=== PATIENT | female | born 1945 | race African-American/Black ===

== ENCOUNTER 2022-07-18 18:55 | Inpatient (IN) | payer OTHER ==
--- OUTSIDE RECORDS SUMMARY | 2022-07-18 18:58 | XMS REPORT | Continuity of Care Document ---
:1945 Author Organization [facility] t Address [address] [place] [address] Care Team Providers Name Role Phone Roshan Conn DO Primary Care Physician Zak Martinez Attending Clinician Unavailable Laly Aburto MA Attending Clinician Unavailable Aide GALLO, Ana Lilia Gupta Attending Clinician Provider , Not In System Attending Clinician Unavailable Delfin MYLES, Kel North Attending Clinician Provider , Kaity Attending Clinician Juan Miguel Jain Attending Clinician Annabella Nunez Attending Clinician Unavailable Zak Martinez Admitting Clinician Unavailable Payers Payer Name Policy Type Policy Number Effective Date Expiration Date S ource Problems Condition Condition Condition Status Onset Resolution Last Treating Co mments Source Name Details Category Date Date Treatment Clinician Date Lung Lung Disease Active Overview: Method i nodules nodules 2-[address] 00:00: g of this Hospita 00 note l might be different from the original. Added automatic ally from request for surgery [id number] History of History of Disease Active Overview : Methodi lung lung 2-[address] cancer cancer 00:00: g of this Hospita 00 note l might be different from the original. Added automatic ally from request for surgery [id number] PORT PORT Diagnosis Active 2019-03-11 Mem oria REMOVAL REMOVAL 02-17 10:58:00 l Active 00:00: Matthew 02/17/[address] [place] [address] Hypomagnes Hypomagnes Disease Active 2017-11 M ethodi emia emia 11-09 00:00: Hospita 00 l Hypokalemi Hypokalemi Disease Active 2017-11 M ethodi a a 11-09 00:00: Hospita 00 l Anemia Anemia Disease Active 2017-11 Methodi associated associated 11-09 with with 00:00: Hospita chemothera chemothera 00 l py py History of History of Disease Active 2017-11 M ethodi breast breast 11-09 cancer in cancer in 00:00: Hosp erica female female 00 l Colon Colon Disease Active Methodi cancer cancer 07-15 st 00:00: Hospita 00 l 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 00:00: Ho spita 00 l Abnormal Abnormal Disease Active Metho di nuclear nuclear 04-28 stress stress 00:00: Hospita test test 00 l SOB SOB Disease Active Methodi (shortness (shortness 04-28 st of breath) of breath) 00:00: Ho spita 00 l Abnormal Abnormal Disease Active Metho di EKG EKG 04-21 00:00: Hospita 00 l Essential Essential Disease Active Met hodi hypertensi hypertensi 04-21 st on on 00:00: Hospita 00 l Amnesia Amnesia Problem Active 2021-06-22 Me moria (finding) (finding) 21:34:42 l Active [place] Problem 06/22/2021 [facility] Hyperlipid Hyperlipi Problem Active 2021-06-22 Memoria emia demia 21:34:42 l (disorder) (disorder) He rmann Active Problem 06/22/2021 [facility] Hypertensi Hypertens Problem Active 2021-06-22 Memoria ve will 21:34:42 l disorder, disorder, Herm gemma systemic systemic arterial arterial (disorder) (disorder) Active Problem 06/22/2021 [facility] Thiamin Thiamin Problem Active 2021-06-22 Me moria deficiency deficiency 21:34:42 l (disorder) (disorder) He rmann Active Problem 06/22/2021 [facility] Allergies, Adverse Reactions, Alerts Allergy Allergy Status Severity Reaction(s) Onset Inactive Treating Comm ents Source Name Type Date Date Clinician No Known DA Active [facility] Allergie 04-16 Clear s 00:00: [place] [facility] Iodine Propensi Active Itching Methodi And ty to 04-09 st Iodide adverse 00:00: Hospita Containi reaction 00 l ng s to Products drug Family History Family Member Diagnosis Comments Start Date Stop Date Source Natural father No Known Problems Met [facility] Natural mother No Known Problems Met [facility] Social History Social Habit Start Date Stop Date Quantity Comments Source History of Smokes tobacco Caodaism tobacco use daily Hospital Alcohol intake 2021-12-20 2021-12-20 Current Caodaism 00:00:00 00:00:00 non-drinker of Hospital alcohol (finding) Social History 2021-03-30 2021-03-30 [facility] hailee 18:54:25 18:54:25 Tobacco use and 2018-07-09 2018-07-09 Smokeless tobacco Me thodist exposure 00:00:00 00:00:00 non-user Hospital Tobacco Comment 2018-07-09 2018-07-09 smokes 1 cig per Met [facility] 00:00:00 00:00:00 day Hospital Sex Ass[birth year] At [birth year] Caodaism 00:00:00 00:00:00 Hospital Smoking Status Start Date Stop Date Source Smokes tobacco daily 2018-07-09 00:00:00 [facility] Medications Ordered Filled Start Stop Current Ordering Indication Dosage Frequency Signature Comments Components Source Medication Medication Date Date Medication? Clinician (SIG) Name Name calcium/D3/ Yes 1{tbl} QD Take 1 Me thodi mag 2-[address] ox/nuclear spectroscopist/clark 11:46: mouth Hospi ta /Zn 29 daily. l (CALTRATE + D3 PLUS MINERALS ORAL) iron,fm,ps/ Yes 1{tbl} QD Take 1 Me thodi folic/B,C18 2-[address] /LInessacasei 11:46: mouth Hospita (FUSION 29 daily. l PLUS ORAL) mag 0 Yes Q24H Take by Methodi hydrox/alum 2-[address] inum 11:46: daily as Hospita hyd/simeth 29 needed. l (ANTACID ORAL) cholecalcif Yes 1{tbl} Take 1 Me thodi zion, 2-[address] vitamin D3, 11:46: mouth Hospi ta (VITAMIN 29 daily. l D3) 5,000 Nature unit tablet Made acetaminoph Yes 500mg Q6H Take 500 M ethodi en 2-[address] (TYLENOL) 11:46: mouth Hospita 500 MG 29 every 6 l tablet (six) hours as needed for mild pain. METOPROLOL Yes 1{tbl} Q.5D Take 1 Met hodi SUCCINATE 2-[address] ORAL 11:46: mouth 2 Hospita 29 (two) l times a day. fluticasone Yes 2{spray QD 2 sprays Methodi propionate 2-17 } by Each st (FLONASE) 11:46: Nare route Ho spita 50 29 daily. l mcg/actuati on nasal spray potassium Yes 20meq Q.5D Take 20 Meth elizabeth chloride 2-[address] (KLOR-CON) 11:46: mouth 2 Hosp erica 20 mEq 29 (two) l packet times a day. Donepezil Yes 5 mg = 1 Keith sheila hydrochlori 7-02 tab, PO, l de 5 MG 14:23: Bedtime, # Herm gemma Oral Tablet 00 30 tab, 3 [Aricept] Refill(s), Pharmacy: [facility], 160.02, cm, 05/04/21 9:09:00 CDT, Height, 66.591, kg, 05/04/21 9:09:00 CDT, Weight thiamine Yes 100 mg = 1 Mem oria 100 mg oral 6-30 tab, PO, l tablet 15:01: Daily, X T[place] 00 90 day, # 90 tab, 1 Refill(s), Pharmacy: [facility], 160.02, cm, 03/30/21 13:40:00 CDT, Height, 68.182, kg, 03/30/21 13:40:00 CDT, Weight Hydrochloro Yes 1 tab, PO, Memoria thiazide 25 5-28 Daily, 0 l MG / 18:46: Refill(s) [place] Lisinopril 00 20 MG Oral Tablet anastrozole Yes 1 mg, PO, M emoria 5-28 Daily, 0 l 18:46: Refill(s) Vitamin D3 Yes PO, Daily, M emoria 5-28 0 l 18:46: Refill(s) Matthew 00 Pravastatin Yes 20 mg = 1 M emoria 5-28 tab, PO, l 18:45: Daily, # [place] 00 30 tab, 0 Refill(s) Lisinopril Yes PO, Daily, M emoria -28 0 l 18:45: Refill(s) [place] 00 lisinopril- Yes .5{tbl} Q.5D Take 0.5 Methodi hydrochloro 4-[address] thiazide 00:00: mouth 2 Hospit a (PRINZIDE,Z 00 (two) l ESTORETIC) times a 20-25 mg day. Takes per tablet one-half bid pravastatin Yes 20mg QD Take 20 mg Methodi (PRAVACHOL) 4-[address] 20 MG 00:00: daily. Hospita tablet 00 l ibandronate Yes 150mg Q30D Take 150 M ethodi (BONIVA) 4-[address] 150 mg 00:00: mouth Hospita tablet 00 every 30 l (thirty) days. anastrozole Yes 1mg QD Take 1 mg M ethodi (ARIMIDEX) 3-[address] 1 mg chemo 00:00: daily. Hospi ta tablet 00 l Immunizations Ordered Immunization Filled Immunization Date Status Commen ts Source Name Name [id number] 2021-01-11 Completed Keith rial [id number] 00:00:00 Herm gemma <sup>1</sup> Vital Signs Vital Name Observation Time Observation Value Comments Source Systolic blood 2021-12-20 17:43:00 126 mm[Hg] [facility] pressure Diastolic blood 2021-12-20 17:43:00 86 mm[Hg] [facility] pressure Heart rate 2021-12-20 17:43:00 87 /min [facility] Body temperature 2021-12-20 17:43:00 36.61 Jessica [facility] Respiratory rate 2021-12-20 17:43:00 18 /min [facility] Body height 2021-12-20 17:43:00 157.5 cm [facility] Body weight 2021-12-20 17:43:00 61.326 kg [facility] BMI 2021-12-20 17:43:00 24.73 kg/m2 [facility] Oxygen saturation in 2021-12-20 17:43:00 95 /min [facility] Arterial blood by Pulse oximetry Systolic (mm Hg) 2021-05-04 14:09:00 Keith rial Matthew Diastolic (mm Hg) 2021-05-04 14:09:00 Mem orial Matthew Heart Rate 2021-05-04 14:09:00 [facility] Respitory Rate 2021-05-04 14:09:00 Memori al Matthew Height 2021-05-04 14:09:00 160.02 cm [facility] Matthew Weight 2021-05-04 14:09:00 [facility] BMI Calculated 2021-05-04 14:09:00 Memori al Matthew Systolic (mm Hg) 2021-03-30 18:40:00 Keith rial [place] Diastolic (mm Hg) 2021-03-30 18:40:00 Mem orial Matthew Heart Rate 2021-03-30 18:40:00 [facility] Matthew Respitory Rate 2021-03-30 18:40:00 Memori al [place] Height 2021-03-30 18:40:00 160.02 cm [facility] Weight 2021-03-30 18:40:00 [facility] BMI Calculated 2021-03-30 18:40:00 Memori al [place] Procedures Procedure Date / Time Performing Clinician Source Performed PARTIAL THROMBOPLASTIN 2021-12-20 19:53:00 Kel Lenz Met [facility] TIME (PTT) COMPREHENSIVE METABOLIC 2021-12-20 19:53:[address] [facility] PANEL CBC WITH PLATELET AND 2021-12-20 19:53:00 Kel Lenz [facility] DIFFERENTIAL ESTIMATED GFR 2021-12-20 19:53:00 Kel Lenz [facility] MANUAL DIFFERENTIAL 2021-12-20 19:53:00 Kel Lenz [facility] TYPE AND SCREEN 2021-12-20 19:53:00 Kel Lenz [facility] PROTHROMBIN TIME WITH INR 2021-12-20 19:53:00 Kel Lenz [facility] PET CT SKULL BASE MID 2021-11-29 00:00:00 Provider, Not In [facility] THIGH EXTERNAL STUDY System CT CHEST EXTERNAL STUDY 2021-11-12 17:40:[address] [facility] CT CHEST W CONTRAST 2021-11-12 00:00:00 Provider, Historical Met [facility] Cataract surgery [facility] Plan of Care Planned Activity Planned Date Details Comments Source Future Scheduled 2022 HEPATITIS B VACCINES [facility] Test 11:33:59 (1 of 3 - 3-dose series) [code = HEPATITIS B VACCINES (1 of 3 - 3-dose series)] Future Scheduled 2022 65+ PNEUMOCOCCAL [facility] Test 11:33:59 VACCINE (1 - PCV) [code = 65+ PNEUMOCOCCAL VACCINE (1 - PCV)] Future Scheduled [address] [facility] Test 11:33:59 (procedure) [code = 420589829] Future Scheduled [address] [facility] Test 11:33:59 [code = COLONOSCOPY SCREENING] Future Scheduled 2022 SHINGLES VACCINES (1 Met [facility] Test 11:33:59 of 2) [code = SHINGLES VACCINES (1 of 2)] Future Scheduled 2022 COVID-19 VACCINE (3 - [facility] Test 11:33:59 Booster for Avery series) [code = COVID-19 VACCINE (3 - Booster for Avery series)] Future Scheduled 2022 INFLUENZA VACCINE [facility] Test 11:33:59 [code = INFLUENZA VACCINE] Encounters Start End Encounter Admission Attending Care Care Encounter Source Date/Time Date/Time Type Type Clinicians Facility Department ID 2022-04-17 Inpatient ANDRES Cordova [id number] [facility] 10:00:00 Zak [id number] [facility] 2022-04-17 2022-04-17 Outpatient ANDRES Cordova [facility] [id number] [facility] 05:10:00 05:10:00 Zak 78 [facility] 2022-04-15 2022-04-15 Telephone Criselda, 1.2.840.1 [id number] Methodi 00:00:00 00:00:[address] 3.430.2.7 Hospit a .3.179163 l .8 2022-03-19 2022-03-19 Telephone Criselda, 1.2.840.1 [id number] Methodi 00:00:00 00:00:[address] 3.430.2.7 Hospit a .3.005690 l .8 2022-03-19 2022-03-19 Telephone Criselda, 1.2.840.1 [id number] Methodi 00:00:00 00:00:[address] 3.430.2.7 Hospit a .3.702929 l .8 2022-03-18 2022-03-18 Orders Chancellor, 1.2.840.1 [id number] Methodi 00:00:00 00:00:00 Only Ana Lilia 56646.1.[address] Candy 3.430.2.7 Hospit a .3.743850 l .8 2022-03-14 2022-03-14 Telephone Criselda, 1.2.840.1 [id number] Methodi 00:00:00 00:00:[address] 3.430.2.7 Hospit a .3.159372 l .8 2022-03-11 2022-03-11 Telephone Criselda, 1.2.840.1 [id number] Methodi 00:00:00 00:00:[address] 3.430.2.7 Hospit a .3.291757 l .8 2022-03-08 2022-03-08 Travel 1.2.840.1 1.2.149.571 0370 [id number] Methodi 00:00:00 00:00:[address] 3.430.2.7 0.2.7.3.698 Ho spita .3.762273 084.8 l .8 2022-02-28 2022-02-28 Orders Provider, 1.2.840.1 [id number] Methodi 00:00:00 00:00:00 Only Not In 09655.1.[address] System 3.430.2.7 Hospit a .3.770094 l .8 2022-02-28 2022-02-28 Telephone Criselda, 1.2.840.1 [id number] Methodi 00:00:00 00:00:[address] 3.430.2.7 Hospit a .3.106568 l .8 2022-02-25 2022-02-25 Orders Chancellor, 1.2.840.1 [id number] Methodi 00:00:00 00:00:00 Only Ana Lilia 97334.1.[address] Candy 3.430.2.7 Hospit a .3.940251 l .8 2022-02-13 2022-02-13 Telephone Criselda, 1.2.840.1 [id number] Methodi 00:00:00 00:00:[address] 3.430.2.7 Hospit a .3.762684 l .8 2022-02-08 2022-02-08 Telephone Criselda, 1.2.840.1 [id number] [id number] Methodi 00:00:00 00:00:[address] 3.430.2.7 Hospit a .3.878867 l .8 2022-01-15 2022-01-15 Telephone Criselda, 1.2.840.1 [id number] Methodi 00:00:00 00:00:[address] 3.430.2.7 Hospit a .3.882992 l .8 2022-01-15 2022-01-15 Telephone Criselda, 1.2.840.1 [id number] 801 [id number] Methodi 00:00:00 00:00:[address] 3.430.2.7 Hospit a .3.016483 l .8 2022-01-15 2022-01-15 Travel 1.2.840.1 1.2.772.122 7928 [id number] Methodi 00:00:00 00:00:[address] 3.430.2.7 0.2.7.3.698 Ho spita .3.640533 084.8 l .8 2022-01-01 2022-01-01 Telephone Criselda, 1.2.840.1 [id number] Methodi 00:00:00 00:00:[address] 3.430.2.7 Hospit a .3.060201 l .8 2021-12-21 2021-12-21 Telephone Criselda, 1.2.840.1 [id number] [id number] Methodi 00:00:00 00:00:[address] 3.430.2.7 Hospit a .3.729570 l .8 2021-12-20 2021-12-20 [facility], 1.2.840.1 [id number] Methodi 12:01:44 23:59:00 Encounter Edlisa Ramires.H. 66285.1.[address] 3.430.2.7 Hospit a .3.471830 l .8 2021-12-20 2021-12-20 Office Lenz, 1.2.840.1 [id number] Methodi 11:15:00 13:44:33 Visit Edlisa Ramires.H. 08253.1.[address] 3.430.2.7 Hospit a .3.541473 l .8 2021-12-20 2021-12-20 Lab Lenz, 1.2.840.1 [id number] Methodi 13:25:00 13:30:00 Edlisa Ramires.H[address]2672.1.[address] 3.430.2.7 Hospit a .3.226556 l .8 2021-12-20 2021-12-20 Outpatient [facility] [id number] 00:00:00 00:00:00 EDWARD [address] 2021-12-20 2021-12-20 Outpatient [facility], [facility] [id number] 00:00:00 00:00:00 EDWARD [address] 2021-12-20 2021-12-20 Outpatient [facility] [id number] [place] 00:00:00 00:00:00 EDWARD [address] 2021-12-20 2021-12-20 Travel 1.2.840.1 1.2.120.292 1061 [id number] Methodi 00:00:00 00:00:[address] 3.430.2.7 0.2.7.3.698 Ho spita .3.017680 084.8 l .8 2021-12-19 2021-12-19 Abstract Criselda, 1.2.840.1 [id number] [id number] Methodi 00:00:00 00:00:[address] 3.430.2.7 Hospit a .3.979699 l .8 2021-12-18 2021-12-18 Telephone Criselda, 1.2.840.1 [id number] [id number] Methodi 00:00:00 00:00:[address] 3.430.2.7 Hospit a .3.572613 l .8 2021-12-11 2021-12-11 Telephone Criselda, 1.2.840.1 [id number] Methodi 00:00:00 00:00:[address] 3.430.2.7 Hospit a .3.799666 l .8 2021-12-11 2021-12-11 Telephone Criselda, 1.2.840.1 [id number] [id number] Methodi 00:00:00 00:00:[address] 3.430.2.7 Hospit a .3.971186 l .8 2021-12-10 2021-12-10 Telephone Criselda, 1.2.840.1 [id number] Methodi 00:00:00 00:00:[address] 3.430.2.7 Hospit a .3.026611 l .8 2021-12-10 2021-12-10 Abstract Criselda, 1.2.840.1 [id number] [id number] Methodi 00:00:00 00:00:[address] 3.430.2.7 Hospit a .3.665169 l .8 2021-11-26 2021-11-26 Orders Provider, 1.2.840.1 [id number] Methodi 00:00:00 00:00:00 Only Historical 24024.1.1 092 s t 3.430.2.7 Hospit a .3.544552 l .8 2021-11-26 2021-11-26 Abstract Criselda, 1.2.840.1 [id number] 2099 [id number] Methodi 00:00:00 00:00:[address] 3.430.2.7 [facility] a .3.147628 l .8 2021-06-20 2021-06-20 Ambulatory nullFlavo MNA [id number] [id number] Memoria 14:45:00 14:45:00 Pre-Reg r Neurology 02 l Lorna Tuthill 2021-06-20 2021-06-20 Outpatient MHIE MHIE [id number] Memoria 09:45:00 09:45:00 02 renetta Tuthill 2021-06-20 2021-06-20 Outpatient GEOVANY JainSCHER MISCHER [id number] 09:45:00 09:45:00 Juan Miguel 02 Tristian 2021-05-04 2021-05-05 Outpatient nullFlavo MNA [id number] Memoria 14:00:00 04:59:59 r Neurology 01 renetta Rothman Tuthill 2021-05-04 2021-05-04 Outpatient GEOVANY JainSCHER MISCHER 949 [id number] 09:00:00 23:59:59 Juan Miguel 01 [facility] 2021-05-04 2021-05-04 Outpatient MHIE MHIE [id number] Memoria 09:00:00 09:00:00 01 renetta Tuthill 2021-03-30 2021-03-31 Outpatient nullFlavo MNA [id number] Memoria 19:15:00 04:59:59 r Neurology 00 renetta Blair Tuthill 2021-03-30 2021-03-30 Outpatient GEOVANY JainSCHER MISCHER 882 [id number] 14:15:00 23:59:59 Juan Miguel 00 [facility] 2021-03-30 2021-03-30 Outpatient MHIE MHIE [id number] Memoria 14:15:00 14:15:00 00 [facility] 2019-03-11 2019-03-12 Outpatient nullFlavo [facility] [id number] Memoria 15:50:00 04:59:00 r Matthew 00 [facility] 2019-03-11 2019-03-11 Outpatient LYNDSAY Nunez [facility] [id number] 10:50:00 23:59:00 Annabella 00 Uyen 2019-03-11 2019-03-11 Outpatient MHBL MED 7500 MHBL 10:50:00 10:50:00 Results Test Description Test Time Test Comments Results Result Comments Source BASIC METABOLIC PANEL 2022-04-16 12:47:00 Test Item Value Reference Range Interpretation Comme nts SODIUM (test code = NA) 142 mEq/L 134-147 N POTASSIUM (test code = K) 3.4 mEq/L 3.4-5.0 N CHLORIDE (test code = CL) 106 mEq/L 100-108 N CARBON DIOXIDE (test code = CO2) 32 mEq/l 21-33 N ANION GAP (test code = GAP) 8 0-20 N GLUCOSE (test code = GLU) 86 mg/dL 70-110 N BLOOD UREA NITROGEN (test code = 14 mg/dL 7-18 N BUN) GLOMERULAR FILTRATION RATE (test 84.6 70-80 H Units of measure = ml/min/1.73 code = GFR) m2 CREATININE (test code = CREAT) 0.8 mg/dL 0.6-1.3 N CALCIUM (test code = CA) 9.9 mg/dL 8.0-10.5 N PROTHROMBIN [id number] 12:37:00 Test Item Value Reference Range Interpretation Comments PROTHROMBIN TIME 12.4 SECONDS 9.3-12.9 N PATIENT (test code = PTP) INTERNATIONAL NORMAL 1.1 0.8-1.2 N TARGET INR BY RATIO (test code = INDICATIO N Indication INR) INR1. Prophylax is of venous thrombos is 2.0 - 3.0 (orthoped ic surgery), Proph ylaxis of venous throm bosis (other than hig h-risk surgery), Treat ment of Deep Vein Thrombosis/Pulm onary Embolism, Preve ntion of systemic emb olism - Tissue heart va lves, Acute Myocardia l Infarction (to prevent systemic emboli sm), Valvular heart disease, Atrial Fibrillation, Bileaflet mecha nical valve in aortic position.2. Mec hanical prosthetic valv es (high risk), 2. 5 - 3.5 Presence of Lup us Anticoagulant o r Antiphospholipi d Antibodies, Pre vention of systemic emb olism - Acute Myocardia l Infarction (to prevent recurrent infar ct). CBC W/AUTO [id number] 12:27:00 Test Item Value Reference Range Interpretation Comments WHITE BLOOD CELL (test code = 3.2 x10 3/uL 4.5-11.0 L WBC) RED BLOOD CELL (test code = 4.31 x10 6/uL 3.54-5.02 N RBC) HEMOGLOBIN (test code = HGB) 13.2 g/dL 11.0-15.0 N HEMATOCRIT (test code = HCT) 40.4 % 33.0-45.0 N MEAN CELL VOLUME (test code = 93.7 fL 81.0-99.0 N MCV) MEAN CELL HGB (test code = MCH) 30.6 pg 27.0-33.0 N MEAN CELL HGB CONCETRATION 32.7 g/dL 33.0-37.0 L (test code = MCHC) RED CELL DISTRIBUTION WIDTH CV 15.4 % 11.5-14.5 H (test code = RDW) PLATELET COUNT (test code = 200 x10 3/uL 150-400 N PLT) NEUTROPHIL % (test code = NT%) 59.4 % 56.0-77.0 N LYMPHOCYTE % (test code = LY%) 29.8 % 14.0-32.0 N NEUTROPHIL # (test code = NT#) 1.91 x10 3/uL 2.0-7.6 L LYMPHOCYTE # (test code = LY#) 0.96 x10 3/uL 1.0-3.8 L MANUAL DIFF REQUIRED (test code NO = MDIFF) RED CELL DISTRIBUTION WIDTH SD 53.3 fL 37.0-54.0 N (test code = RDW-SD) MEAN PLATELET VOLUME (test code 10.0 fL 7.0-9.0 H = MPV) IMMATURE GRANULOCYTE % (test 0.3 % 0.0-2.0 N code = IG%) MONOCYTE % (test code = MO%) 9.3 % 4.8-9.0 H EOSINOPHIL % (test code = EO%) 0.6 % 0.3-3.7 N BASOPHIL % (test code = BA%) 0.6 % 0.0-2.0 N NUCLEATED RBC % (test code = 0.0 % 0-0 N NRBC%) IMMATURE GRANULOCYTE # (test 0.01 x10 3/uL 0.00-0.03 N code = IG#) MONOCYTE # (test code = MO#) 0.30 x10 3/uL 0.1-0.8 N EOSINOPHIL # (test code = EO#) 0.02 x10 3/uL 0.0-0.2 N BASOPHIL # (test code = BA#) 0.02 x10 3/uL 0.0-0.2 N NUCLEATED RBC # (test code = 0.00 x10 3/uL 0.0-0.1 N NRBC#) - XR CHEST 2 [id number] 00:00:00 [facility] 1945 Sex: F FAX: Zak Dinero MD [phone] [place]: St: PRE Name: DEJA MONTES DE OCA [facility] : 1945 Age/S: 76/F [address] [place] [address] Unit #: [id number] Loc: [place] [address] Phys: Zak Martinez MD Acct: [id number] Dis Date: Status: PRE [facility] PHONE #: [phone] Exam Date: 04/16/2022 1246 FAX #: [phone] Reason: PREOP EXAMS: CPT CODE: [id number] XR CHEST 2 V [id number] PROCEDURE INFORMATION: Exam: XR Chest Exam date and time: 04/16/2022 12:11 PM Age: 76 years old Clinical indication: Pre-operative exam; Respiratory screening exam; Additional info: Preop TECHNIQUE: Imaging protocol: XR of the chest. Views: 2 views. PA and Lateral COMPARISON: No relevant prior studies available. FINDINGS: Lungs: Right perihilar mass measures 5.5 cm. No consolidation or interstitial edema. Pleural spaces: No pleural effusion. No pneumothorax. Heart/Mediastinum: The heart size is normal. Vasculature: Tortuous aorta contains calcifications. Bones/joints: No acute abnormality. IMPRESSION: 5.5 cm right perihilar mass. Follow-up CT chest is recommended. at 1501 Reported and signed by: Jez Melara M.D. CC: Zak Martinez MD Technologist: RT Leni(Golden) Trnscrd Date/Time/By: 04/16/2022 (1500) : By: [email or web address] Orig Print D/T: S: 04/16/2022 (1337) PAGE 1 Signed ReportType and [id number] 21:13:00 Test Item Value Reference Range Interpretation Comments ABO grouping (test code = 883-9) O Rh type (test code = 46023-2) POS Antibody screen (gel) (test code = NEG 890-4) [facility]
--- NOTE | 2022-07-18 20:14 | RAD REPORT ---
EXAM DESCRIPTION: RAD - Knee Right 3 View - 07/18/2022 8:08 pm CLINICAL HISTORY: fall Fall, trauma, pain COMPARISON: No comparisons FINDINGS: Diffuse osteopenia is seen. Tricompartmental osteoarthritis is noted. No significant joint effusion. If clinical concern for fracture persists, CT would be recommended.
[2022-07-18 20:31] LABS: Absolute Lymphocytes (CBC) 0.6 K/uL (0.7-4.9); Hematocrit 47.3 % (36.0-45.0); Lymphocytes % 7.9 % (15.3-44.8); MCV 91.6 fL (80-100); MPV 8.9 fL (7.6-11.3); RBC Red Blood Cell Count 5.16 M/uL (3.86-4.86)
[2022-07-18] MEDS ORDERED: NA CHLORIDE 0.9% 1,000 ML ONE ×2 (20:40→22:00)
[2022-07-18 20:48] LABS: Protime INR 1.17
[2022-07-18 21:03] LABS: Albumin 3.7 g/dL (3.4-5.0); Bilirubin Direct 0.3 mg/dL (0-0.2); Bilirubin Total 0.9 mg/dL (0.2-1.0); Magnesium 2.4 mg/dL (1.8-2.4); Potassium 3.8 mmol/L (3.5-5.1); Protein, Total 9.1 g/dL (6.4-8.2)
[2022-07-18 22:00] LABS: Urine Blood 2+ (Negative); Urine Glucose Negative (Negative); Urine Protein 2+ (Negative); Urine Specific Gravity >=1.030 (1.005-1.030); Urine pH 5.5 (5.0-7.0)
--- NOTE | 2022-07-18 22:15 | ER ---
Nurse's Notes [facility] Name: Alexia Montes De Oca Age: 77 yrs Sex: Female : 1945 Arrival Date: 07/18/2022 Time: 19:01 Bed 4 Private MD: Diagnosis: Rhabdomyolysis;Dehydration;Lactic Acidosis;Severe sepsis without septic shock;UTI/ Urinary tract infection, site not specified Presentation: 07/18 19:04 Chief complaint: EMS states: Patient found on floor at home by a family member. Patient ss does not remember falling and is unsure how long she has been on the ground. C/o back pain. Coronavirus screen: Client denies travel out of the [place] in the last 14 days. Ebola Screen: Patient denies exposure to infectious person. Patient denies travel to an Ebola-affected area in the 21 days before illness onset. Initial Sepsis Screen: Does the patient meet any 2 criteria? No. Patient's initial sepsis screen is negative. Does the patient have a suspected source of infection? No. Patient's initial sepsis screen is negative. Risk Assessment: Do you want to hurt yourself or someone else? Patient reports no desire to harm self or others. Onset of symptoms was July 18, 2022. 19:04 Method Of Arrival: EMS: [facility] ss 19:04 Acuity: NAE 2 ss Triage Assessment: 20:34 General: Appears in no apparent distress. uncomfortable, Behavior is calm, cooperative, vc1 appropriate for age. Pain: Complains of pain in Bottom. Historical: - Allergies: 22:39 No Known Allergies; vc1 - Immunization history:: Adult Immunizations up to date. - Family history:: not pertinent. - Social history:: Smoking status: Patient denies any tobacco usage or history of. - Hospitalizations: : No recent hospitalization is reported. Screenin:34 Abuse screen: Denies threats or abuse. Nutritional screening: No deficits noted. vc1 Tuberculosis screening: No symptoms or risk factors identified. Fall Risk Fall in past 12 months (25 points). No secondary diagnosis (0 pts). IV access (20 points). Ambulatory Aid- None/Bed Rest/Nurse Assist (0 pts). Gait- Weak (10 pts.). Mental Status- Oriented to own ability (0 pts). Assessment: 19:00 General: Appears in no apparent distress. uncomfortable, ill, slender, Behavior is vc1 calm, quiet. Pain: Complains of pain in buttocks Pain does not radiate. Neuro: Level of Consciousness is obeys commands, lethargic, Oriented to person, place, situation. Cardiovascular: Capillary refill < 3 seconds Patient's skin is warm and dry. Respiratory: Airway is patent Respiratory effort is even, unlabored, shallow, Respiratory pattern is tachypnea. GI: No signs and/or symptoms were reported involving the gastrointestinal system. : Urine is blood tinged. EENT: No deficits noted. Derm: No deficits noted. 20:00 Reassessment: No changes from previously documented assessment. Patient and/or family vc1 updated on plan of care and expected duration. Pain level reassessed. 21:00 Reassessment: No changes from previously documented assessment. Patient and/or family vc1 updated on plan of care and expected duration. Pain level reassessed. 22:39 Reassessment: No changes from previously documented assessment. Patient and/or family vc1 updated on plan of care and expected duration. Pain level reassessed. Patient states symptoms have improved. Neuro: Level of Consciousness is lethargic. 07/19 00:00 Reassessment: No changes from previously documented assessment. Patient and/or family vc1 updated on plan of care and expected duration. Pain level reassessed. Patient states feeling better. Patient states symptoms have improved. 01:00 Reassessment: No changes from previously documented assessment. Patient and/or family vc1 updated on plan of care and expected duration. Pain level reassessed. Patient states feeling better. Patient states symptoms have improved. Vital Signs: 07/18 19:00 BP 119 / 97; Pulse 123; Resp 25; Pulse Ox 91% on R/A; vc1 19:04 BP 119 / 97; Pulse 121; Resp 18; Temp 99.3; Pulse Ox 90% on R/A; ss 20:00 BP 108 / 84; Pulse 117; Resp 25; Pulse Ox 90% on R/A; vc1 20:30 BP 112 / 90; Pulse 119; Resp 26; Pulse Ox 97% on 4 lpm NC; vc1 22:30 BP 149 / 98; Pulse 102; Resp 25; Pulse Ox 95% on R/A; jb4 07/19 00:34 BP 145 / 95; Pulse 95; Resp 24; Pulse Ox 97% on 4 lpm NC; jb4 ED Course: 07/18 19:01 Patient arrived in ED. ss 19:04 Arm band placed on left wrist. ss 19:06 Triage completed. ss 19:08 Rafi Yoder MD is Attending Physician. rn 20:10 XRAY Knee RIGHT 3 view In Process Unspecified. EDMS 20:33 Alyssa Zelaya, KAYLI is Primary Nurse. vc1 20:35 Patient has correct armband on for positive identification. Bed in low position. Call vc1 light in reach. Side rails up X2. Client placed on continuous cardiac and pulse oximetry monitoring. NIBP monitoring applied. 22:10 CT Traumagram (Head C Spine CAP W Con) In Process Unspecified. EDMS 22:14 Halima Ross MD is Hospitalizing Provider. rn 22:18 Luisito Fernandez MD is Hospitalizing Provider. rn 07/19 01:07 No provider procedures requiring assistance completed. Patient admitted, IV remains in vc1 place. Administered Medications: 07/18 20:35 Drug: NS 0.9% 1000 ml Route: IV; Rate: 1000 ml; Site: left antecubital; vc1 22:34 Drug: NS 0.9% 1000 ml Route: IV; Rate: 1 bolus; Site: left antecubital; vc1 23:22 Drug: Rocephin (cefTRIAXone) 1 grams Route: IV; Rate: calculated rate; Site: left vc1 antecubital; Medication: 20:35 VIS not applicable for this client. vc1 Outcome: 22:14 Decision to Hospitalize by Provider. rn 07/19 01:07 Admitted to Med/surg accompanied by tech, via stretcher, room 203, Report called to vc1 KAYLI Mayer Condition: good Instructed on the need for admit. 01:09 Patient left the ED. vc1 Signatures: Dispatcher [employer] EDMS Rafi Yoder MD MD rn Smirch, Shelby, RN RN ss Bryson, James, RN RN jbAlyssa Man RN RN vc1 Corrections: (The following items were deleted from the chart) 07/18 22:39 22:39 Home Meds: None; vc1 vc1
--- NOTE | 2022-07-18 22:15 | EDPHYS ---
Physician Documentation [facility] Name: Alexia Montes De Oca Age: 77 yrs Sex: Female : 1945 Arrival Date: 07/18/2022 Time: 19:01 Bed 4 Private MD: ED Physician Rafi Yoder HPI: 07/18 19:30 This 77 yrs old Black Female presents to ER via EMS with complaints of possible fall, rn weakness. 19:30 Onset: The symptoms/episode began/occurred at an unknown time. rn 19:31 The patient presents with decreased mental status, decreased responsiveness. Possible rn causes: unknown. Associated signs and symptoms: Pertinent positives: confusion, Pertinent negatives: abdominal pain, chest pain, seizure. Current symptoms: In the emergency department the patient's symptoms are unchanged from the initial presentation. It is unknown whether or not the patient has had similar symptoms in the past. The patient has not recently seen a physician. EMS reports possible fall, found down on ground for unknown period of time. Reports mild pain to back. Does not recall fall or what happened. Family here and states last spoken to this AM. No chest pain/sob/abd pain/vomiting/diarrhea. Daughter states hx of colon and breast cancer that they believe is done with but might have "spots on lungs". . Historical: - Allergies: 22:39 No Known Allergies; vc1 - Immunization history:: Adult Immunizations up to date. - Family history:: not pertinent. - Social history:: Smoking status: Patient denies any tobacco usage or history of. - Hospitalizations: : No recent hospitalization is reported. ROS: 19:31 Constitutional: Negative for fever, chills, and weight loss, Eyes: Negative for injury, rn pain, redness, and discharge, ENT: Negative for injury, pain, and discharge, Neck: Negative for injury, pain, and swelling, Cardiovascular: Negative for chest pain, palpitations, and edema, Respiratory: Negative for shortness of breath, cough, wheezing, and pleuritic chest pain, Abdomen/GI: Negative for abdominal pain, nausea, vomiting, diarrhea, and constipation, Back: + low back pain : Negative for injury, bleeding, discharge, and swelling, MS/Extremity: Negative for injury and deformity, Skin: Negative for injury, rash, and discoloration, Neuro: Negative for numbness, tingling, and seizure. Exam: 19:31 Constitutional: Thin female, slow to respond Head/Face: Normocephalic, atraumatic. rn Eyes: Periorbital areas with no swelling, redness, or edema. ENT: very dry MM Neck: NO midline cervical tenderness Chest/axilla: Normal chest wall appearance and motion. Nontender with no deformity. No lesions are appreciated. Cardiovascular: Tachcyardic, regular Respiratory: + mild tachypnea, no retractions Abdomen/GI: soft, non-tender, no ecchymosis Back: No spinal tenderness. Able to situp with my assistance. MS/ Extremity: Pulses equal, no cyanosis. Neurovascular intact. Full, normal range of motion. Equal circumference. + mild pain with ROM of right knee, no deformity. Neuro: Awake and alert, GCS 15, oriented to person, place, not time. Cranial nerves II-XII grossly intact. Motor strength 4/5 in all extremities. Sensory grossly intact. 20:08 ECG was reviewed by the Attending Physician. rn Vital Signs: 19:00 BP 119 / 97; Pulse 123; Resp 25; Pulse Ox 91% on R/A; vc1 19:04 BP 119 / 97; Pulse 121; Resp 18; Temp 99.3; Pulse Ox 90% on R/A; ss 20:00 BP 108 / 84; Pulse 117; Resp 25; Pulse Ox 90% on R/A; vc1 20:30 BP 112 / 90; Pulse 119; Resp 26; Pulse Ox 97% on 4 lpm NC; vc1 22:30 BP 149 / 98; Pulse 102; Resp 25; Pulse Ox 95% on R/A; jb4 07/19 00:34 BP 145 / 95; Pulse 95; Resp 24; Pulse Ox 97% on 4 lpm NC; jb4 MDM: 07/18 19:08 Patient medically screened. rn 21:54 Differential Diagnosis: electrolyte abnormality, hypoglycemia, intracranial bleed, rn pneumonia, UTI, volume depletion. 22:13 ED course: NO evidence of infection at this time, elevated lactate likely 2/2 rn dehydration and rhabdo. . 22:33 ED course: Urine micro now show UTI, now meets severe sepsis criteria, gives us source rn (A); SIRS criteria (B) Tachycardia 121, Acute AMS, and RR > 20. Organ dysfunction (C) is elevated lactate. Fluids given for rhabdo, will repeat lactate, but farah snot require 30ml/kg at this time, is not in shock. Abx ordered. . 07/18 19:12 Order name: Basic Metabolic Panel; Complete Time: 21:35 07/18 19:12 Order name: CBC with Diff; Complete Time: 21:35 07/18 19:12 Order name: LFT's; Complete Time: 21:35 07/18 19:12 Order name: Urine Culture rn 07/18 19:12 Order name: Urine Microscopic Only; Complete Time: 22:31 07/18 19:12 Order name: CPK; Complete Time: 21:35 07/18 19:12 Order name: CT Traumagram (Head C Spine CAP W Con); Complete Time: 22:31 07/18 19:12 Order name: Magnesium; Complete Time: 21:35 07/18 19:12 Order name: Protime (+inr); Complete Time: 21:35 07/18 19:12 Order name: Ptt, Activated; Complete Time: 21:35 07/18 19:12 Order name: SARS RAPID; Complete Time: 22:43 07/18 19:12 Order name: Blood Culture Adult (2) 07/18 19:12 Order name: Lactate; Complete Time: 21:35 07/18 22:01 Order name: Urine Dipstick-Ancillary; Complete Time: 22:13 EDMS 07/18 19:12 Order name: Labs collected and sent; Complete Time: 20:36 07/18 19:12 Order name: IV Start; Complete Time: 20:36 07/18 19:12 Order name: Urine Dipstick-Ancillary (obtain specimen); Complete Time: 22:18 07/18 19:12 Order name: XRAY Knee RIGHT 3 view; Complete Time: 20:36 07/18 19:12 Order name: EKG; Complete Time: 19:13 07/18 19:12 Order name: Cardiac monitoring; Complete Time: 20:35 07/18 19:12 Order name: EKG - Nurse/Tech; Complete Time: 20:35 07/18 19:12 Order name: NPO; Complete Time: 20:35 07/18 19:12 Order name: O2 Per Protocol; Complete Time: 20:35 07/18 19:12 Order name: O2 Sat Monitoring; Complete Time: 20:35 rn EC:08 Rate is 118 beats/min. Rhythm is regular. QRS [place] is Normal. NE interval is normal. rn QRS interval is normal. QT interval is normal. No Q waves. T waves are Normal. No ST changes noted. Clinical impression: Sinus tachycardia. Interpreted by me. Reviewed by me. Administered Medications: 20:35 Drug: NS 0.9% 1000 ml Route: IV; Rate: 1000 ml; Site: left antecubital; vc1 22:34 Drug: NS 0.9% 1000 ml Route: IV; Rate: 1 bolus; Site: left antecubital; vc1 23:22 Drug: Rocephin (cefTRIAXone) 1 grams Route: IV; Rate: calculated rate; Site: left vc1 antecubital; Disposition Summary: 07/18/22 22:14 Hospitalization Ordered Hospitalization Status: Inpatient Admission rn Location: Telemetry/MedSurg (Inpatient) rn Condition: Stable rn Problem: new rn Symptoms: have improved rn Bed/Room Type: Standard rn Provider: Luisito Fernandez(07/18/22 22:18) rn Room Assignment: 203(07/19/22 00:06) cg Diagnosis - Rhabdomyolysis rn - Dehydration rn - Lactic Acidosis rn - Severe sepsis without septic shock rn - UTI/ Urinary tract infection, site not specified rn Forms: - Medication Reconciliation Form rn - SBAR form rn Signatures: Dispatcher [employer] EDMS Rafi Yoder MD MD rn Garcia, Cindy, RN RN cg Calcote, Vanessa RN RN vc1 Corrections: (The following items were deleted from the chart) 22:18 22:14 Halima Ross rn rn 22:35 22:33 ED course: Urine micro now show UTI, gives us source (A); SIRS criteria (B) rn Tachycardia 121, Acute AMS, and RR > 20. Organ dysfunction (C) is elevated lactate. Fluids given for rhabdo, will repeat lactate, but farah snot require 30ml/kg at this time, is not in shock. Abx ordered. . rn 22:39 22:39 Home Meds: None; vc1 vc1 07/19 00:06 07/18 22:14 rn cg
[2022-07-18 22:25] LABS: Urine Bacteria 20-50 /HPF (<20); Urine Mucus 4+ /HPF (None Seen); Urine RBC <5 /HPF (None Seen)
--- NOTE | 2022-07-18 22:27 | RAD REPORT ---
EXAM DESCRIPTION: CT - Head C Spine Cap Anupama Yusuf - 07/18/2022 10:08 pm CLINICAL HISTORY: Trauma, head and neck injury. Chest, abdomen and pelvis pain. unwitnessed fall, back pain, sob, pelvic pain COMPARISON: Ct Skull/Thigh dated 11/29/2021 TECHNIQUE: CT head without contrast. CT cervical spine without contrast with coronal and sagittal reformatted images. CT chest, abdomen and pelvis with IV contrast (approximately 100 mL nonionic IV contrast) with bethea l and sagittal reformatted images of the spine. All CT scans are performed using dose optimization technique as appropriate and may include automated exposure control or mA/KV adjustment according to patient size. FINDINGS: CT HEAD WITHOUT CONTRAST: No intracranial hemorrhage, hydrocephalus or extra-axial fluid collection. Mild generalized brain atr ophy is present with mild periventricular and deep white matter chronic microvascular ischemic change s. No areas of brain edema or midline shift. The paranasal sinuses and mastoids are clear. The calvarium is intact. CT CERVICAL SPINE WITHOUT CONTRAST: No fracture or subluxation. Mild midcervical degenerative spondylosis. The prevertebral soft tissues are normal in thickness. CT CHEST, ABDOMEN, PELVIS WITH CONTRAST: 14 mm spiculated nodule is present in the left upper lobe. 7 mm spiculated nodule is present posterio r left upper lobe. 12 mm spiculated nodule is present superior segment right lower lobe. 7 mm spicula shey nodule is present right middle lobe.Emphysematous changes are present.No pneumothorax or pericard ial/pleural fluid. Enlarged lymphadenopathy is seen the hilar regions as well as the AP window. No evidence of intra-abdominal visceral injury, free fluid or free air. Bilateral renal cysts are pre sent, benign appearance. No pelvic mass or hematoma. Moderate lumbar degenerative changes are present. Moderate lower lumbar degenerative changes. IMPRESSION: Negative for acute traumatic findings. Spiculated lesions in the lungs, largest left upper lobe again seen. Most likely this is related to n eoplastic process. Please reference 11/29/2021 PET-CT report.
[2022-07-18 22:38] LABS: SARS-CoV-2 Antigen Rapid Res Negative (Negative)
[2022-07-18] MEDS ORDERED: CEFTRIAXONE 1000 MG/VIAL ONE (23:19)
--- NOTE | 2022-07-19 00:37 | P.HP ---
Certification for Inpatient Patient admitted to: Inpatient With expected LOS: >2 Midnights Patient will require the following post-hospital care: None Practitioner: I am a practitioner with admitting privileges, knowledge of patient current condition, hospital course, and medical plan of care. Services: Services provided to patient in accordance with Admission requirements found in Title 42 Section 412.3 of the Code of Federal Regulations <Rajat Albrecht - Last Filed: 07/19/22 00:30> Patient History Date of Service: 07/19/22 Reason for admission: Sepsis, UTI, rhabdo History of Present Illness: 77-year-old female with history of lung cancer, hypertension, CAD presents the emergency department after being found on the floor of her apartment. She was last seen by her niece on Friday at 9 AM, they had not heard from her since a welfare check was performed and patient was found to be lying on the floor. Patient is typically alert, oriented x3-4 and lives independently it is unknown why she was on the floor or how she fell nor the duration of time lying on the floor. She is evaluated in the emergency department she met SIRS criteria for heart rate greater than 90 and respiratory rate greater than 20 source infection was present with urinary tract infection her lactic acid was 2.4 being criteria for severe sepsis. Additional labs were significant for a markedly elevated CPK 10,635 mild elevations of aminotransferase levels. Patient back to her baseline mental status per family who is at bedside she denies any specific complaints or pain she had a CT head C-spine/chest abdomen pelvis with IV contrast which was without acute findings but did demonstrate spiculated lesions in the lungs, largest left upper lobe again seen most likely related neoplastic process. Patient and family notified about results they are currently undergoing evaluation in preparation for biopsy on outpatient basis. Will admit patient for further evaluation and management of fall, severe sepsis secondary to UTI, rhabdomyolysis. - Past Medical/Surgical History -: CAD -: Hypertension -: Lung cancerprevious radiation/chemo -: Knee surgery -: Stents Psychosocial/ Personal History: Patient lives at home alone in an apartment - Family History Family History: Reviewed- Non-Contributory - Social History Smoking Status: Current every day smoker Counseled patient to stop smoking for: less than 10 minutes Alcohol use: No CD- Drugs: No Caffeine use: Yes Place of Residence: Home <Rajat Albrecht - Last Filed: 07/19/22 00:30> Date of Service: 07/19/22 <Luisito Fernandez - Last Filed: 07/19/22 13:20> Allergies No Known Allergies Allergy (Verified 05/12/14 08:13) Review of Systems 10-point ROS is otherwise unremarkable General: Weakness, Malaise <Rajat Albrecht - Last Filed: 07/19/22 00:30> Physical Examination - Physical Exam General: Alert, In no apparent distress, Oriented x3 HEENT: Atraumatic, PERRLA, Other (Mucous membranes dry), EOMI, Sclerae nonicteric Neck: Supple, 2+ carotid pulse no bruit, No LAD, Without JVD or thyroid abnormality Respiratory: Clear to auscultation bilaterally, Normal air movement Cardiovascular: Regular rate/rhythm, Normal S1 S2 Capillary refill: <2 Seconds Gastrointestinal: Normal bowel sounds, No tenderness Musculoskeletal: No tenderness Integumentary: No rashes Neurological: Normal speech, Normal strength at 5/5 x4 extr, Normal tone - Studies Laboratory Data (last 24 hrs) 07/18/22 20:21: PT 12.9 H, INR 1.17, APTT 28.6 07/18/22 20:03: WBC 7.60, Hgb 15.7 H, Hct 47.3 H, Plt Count 150 L 07/18/22 20:03: Sodium 136, Potassium 3.8, BUN 35 H, Creatinine 1.29, Glucose 99, Magnesium 2.4, Total Bilirubin 0.9, AST 274 H, ALT 88 H, Alkaline Phosphatase 54 <Rajat Albrecht - Last Filed: 07/19/22 00:30> - Studies Laboratory Data (last 24 hrs) 07/18/22 20:21: PT 12.9 H, INR 1.17, APTT 28.6 07/18/22 20:03: WBC 7.60, Hgb 15.7 H, Hct 47.3 H, Plt Count 150 L 07/18/22 20:03: Sodium 136, Potassium 3.8, BUN 35 H, Creatinine 1.29, Glucose 99, Magnesium 2.4, Total Bilirubin 0.9, AST 274 H, ALT 88 H, Alkaline Phosphatase 54 <Luisito Fernandez - Last Filed: 07/19/22 13:20> Assessment and Plan - Plan Assessment: Rhabdomyolysis Severe sepsis secondary to urinary tract infection Questionable fall vs syncope/unsteady gait History of CAD Hypertension Incidental CT chest findings Plan: Rhabdomyolysis: Continue aggressive IV fluids, patient received IV fluid bolus in the emergency department. Monitor renal function and CPK daily, nephrology to be consulted. Severe sepsis secondary to urinary tract infection: Patient did not meet criteria for sepsis fluid bolus given lack of hypotension, lactate less than 4. Continue antibioticsRocephin blood and urine cultures were obtained. Patient with some questionable altered mental status prior to arrival to the hospital she is currently back to her baseline. Questionable fall vs syncope/unsteady gait: Patient was last seen by her niece on Friday morning at 9 AM, her niece reports that at that time she had unsteady gait and was not quite acting herself. She was then found in her apartment on the ground this afternoon it is unknown if she fell, passed out or what happened between Friday and now. We will have patient evaluated by physical therapy obtain MRI to rule out neurological causes as well as echocardiogram. Monitor on telemetry. Patient states she is feeling well at this time. No focal neurological deficits on exam. History of CAD: Continue home medications Hypertension: Continue home medications Incidental CT chest findings: 14 mm spiculated nodule is present in the left upper lobe. 7 mm spiculated nodule is present posterior left upper lobe. 12 mm spiculated nodule is present superior segment right lower lobe. 7 mm spiculated nodule is present right Discussed findings with patient and niece at bedside, they are aware of abnormalities on chest x-ray/CT and are following up outpatient, patient is currently pending a outpatient stress test before having a biopsy for diagnosis of possible neoplasm/lung cancer. She previously had lung cancer and received radiation/chemo about 3 years ago. Discussed importance of outpatient follow- up. DVT PPX: Lovenox Code status: Full Discharge Plan: Home Plan to discharge in: 72 Hours - Advance Directives Does patient have a Living Will: No Does patient have a Durable POA for Healthcare: No - Code Status/Comfort Care Code Status Assessed: Yes (Full code) Critical Care: No Time Spent Managing Pts Care (In Minutes): 70 <Rajat Albrecht - Last Filed: 07/19/22 00:30> Physician Review: Patient Assessed, Agree with Above Assessment and Plan <Rebecca,Luisito - Last Filed: 07/19/22 13:20>
[2022-07-19] MEDS ORDERED: ONDANSETRON 4 MG/2 ML VIAL IV PRN (01:12)
[2022-07-19] MEDS: Ringers Lactate 1,000 ML IV SCH ×3 (02:43→20:47)
[2022-07-19 04:28] LABS: Absolute Lymphocytes (CBC) 0.5 K/uL (0.7-4.9); Lymphocytes % 8.7 % (15.3-44.8); MCV 92.9 fL (80-100); MPV 8.9 fL (7.6-11.3); RBC Red Blood Cell Count 4.73 M/uL (3.86-4.86)
[2022-07-19 04:34] LABS: Albumin 2.9 g/dL (3.4-5.0); Bilirubin Total 0.5 mg/dL (0.2-1.0); Protein, Total 7.6 g/dL (6.4-8.2); Thyroid Stimulating Hormone 0.283 uIU/mL (0.360-3.740)
[2022-07-19 04:41] VITALS: BMI 19.5
[2022-07-19 04:47] LABS: Magnesium 2.3 mg/dL (1.8-2.4); Potassium 4.1 mmol/L (3.5-5.1)
[2022-07-19] MEDS ORDERED: PNEUMOCOCCAL VACCINE 0.5 ML IMVAC ONE (08:00)
[2022-07-19] MEDS: FOLIC ACID 1 MG TABLET PO SCH ×2 (09:00→15:41)
[2022-07-19] MEDS: ASPIRIN EC 81 MG TAB PO SCH ×2 (09:00→15:41)
[2022-07-19] MEDS: ENOXAPARIN 40 MG/0.4 ML SQ SCH (10:50)
--- NOTE | 2022-07-19 12:30 | EKG ---
Test Date: 2022-07-18 Test Time: 20:07:16 Cnc Mechanic: FRENCH MEASUREMENT RESULTS: Intervals: Rate: 118 CT: 164 QRSD: 90 QT: 306 QTc: 428 [place]: P: 74 CT: 164 QRS: 5 T: 79 INTERPRETIVE STATEMENTS: Sinus tachycardia Possible Left atrial enlargement Possible Inferior infarct, age undetermined Abnormal ECG Compared to ECG 05/12/2014 08:20:34 Myocardial infarct finding now present Sinus rhythm no longer present Electronically Signed On 07-19-22 12:28:58 CDT by Prateek Michelle
--- NOTE | 2022-07-19 12:38 | RAD REPORT ---
EXAM DESCRIPTION: MRI - Brain Wo Cont - 07/19/2022 11:57 am CLINICAL HISTORY: unsteady gait, AMS, transient alteration of awareness COMPARISON: Brain Wo Cont dated 04/18/2021; Head C Spine Cap W Con dated 07/18/2022 TECHNIQUE: Sagittal T1-weighted images were obtained along with axial PD, heavily T2-weighted and T2 -FLAIR images. Axial DWI and ADC mapping sequences were also obtained along with coronal heavily T2-w eighted images. Axial T2 HASTE sequence also obtained. FINDINGS: No intracranial hemorrhage, mass or acute infarction. There is no edema or shift of midlin e structures. No extra-axial fluid collections. Morales-matter/white matter junction is preserved. Signa l voids are seen as a normal finding in the major intracranial vessels. Cerebral atrophy pattern matc hes the 2020 study. Ventricles are in proportion to the volume loss. Moderate severity chronic ischem ic pattern in the cerebral white matter, primarily bifrontal, similar to prior imaging. There is left basal ganglia and insular cortex chronic ischemic change. No globe or orbital content abnormality. No sella or supra sella abnormality seen. No tonsillar ectop ia. Mastoid air cells and paranasal sinuses are clear. IMPRESSION: No acute or subacute infarction changes. No acute intracranial finding. Atrophy and chronic ischemic changes match the April 2021 study.
[2022-07-19] MEDS: HYDROCODONE/APAP 5/325 MG TAB PO PRN (15:41)
[2022-07-19] MEDS ORDERED: NA CHLORIDE 0.9% 1,000 ML IV ONE (16:25)
[2022-07-19] MEDS ORDERED: NA CHLORIDE 0.9% 500 ML IV ONE (16:30)
[2022-07-19] MEDS: CEFTRIAXONE 1,000 MG in NA CHLORIDE 0.9% 50 ML IVPB SCH (20:47)
[2022-07-19] MEDS ORDERED: CEFTRIAXONE 1000 MG/VIAL ONE (20:52)
[2022-07-20] MEDS: Ringers Lactate 1,000 ML IV SCH ×3 (05:20→17:12)
[2022-07-20 05:40] LABS: Absolute Lymphocytes (CBC) 0.5 K/uL (0.7-4.9); Hematocrit 37.5 % (36.0-45.0); Lymphocytes % 12.6 % (15.3-44.8); MCV 92.5 fL (80-100); MPV 8.8 fL (7.6-11.3); RBC Red Blood Cell Count 4.05 M/uL (3.86-4.86)
[2022-07-20 06:01] LABS: Albumin 2.3 g/dL (3.4-5.0); Bilirubin Total 0.3 mg/dL (0.2-1.0); Magnesium 2.1 mg/dL (1.8-2.4); Potassium 3.8 mmol/L (3.5-5.1); Protein, Total 6.1 g/dL (6.4-8.2)
[2022-07-20] MEDS: ASPIRIN EC 81 MG TAB PO SCH (08:38)
[2022-07-20] MEDS: FOLIC ACID 1 MG TABLET PO SCH (08:38)
[2022-07-20] MEDS: ENOXAPARIN 40 MG/0.4 ML SQ SCH (08:38)
[2022-07-20] MEDS ORDERED: POTASSIUM CL SA 10 MEQ TAB PO ONE (09:00)
--- NOTE | 2022-07-20 18:06 | P.PN ---
Subjective Date of Service: 07/20/22 Chief Complaint: Sepsis, UTI, rhabdo Subjective: Improving No acute events overnight. She is alert and oriented x 2 today [address] and [address]. Per her sister, Ms. Benjamin, this is near baseline. She worked well with PT, but is becoming tachycardic and tachypneic with exertion. Review of Systems 10-point ROS is otherwise unremarkable General: Weakness (generalized) Respiratory: SOB with Excertion Physical Examination - Vital Signs Temperature: 97.4 F Blood Pressure: 129/86 Pulse: 78 Respirations: 16 Pulse Ox (%): 97 - Physical Exam General: Alert, In no apparent distress, Oriented x2 HEENT: Atraumatic, PERRLA, Mucous membr. moist/pink, EOMI, Sclerae nonicteric Neck: Supple, JVD not distended Respiratory: Clear to auscultation bilaterally, Normal air movement Cardiovascular: No edema, Regular rate/rhythm, Normal S1 S2, No gallops, No rubs, No murmurs Gastrointestinal: Normal bowel sounds, Soft and benign, Non-distended, No tenderness, No rebound, No guarding Musculoskeletal: No clubbing Integumentary: No rashes Neurological: Normal speech, Cranial nerves 3-12 intact, Normal affect - Studies Microbiology Data (last 24 hrs): 07/18/22 21:56 Catheterized Urine [place] Count - Final BETWEEN 10,000 & 100,000 CFU/ML 07/18/22 21:56 Catheterized Urine - Final MIXED BAKARI. Assessment And Plan - Plan # Severe Sepsis likely secondary to a Urinary Tract Infection She met sepsis criteria based on HR > 90 bpm, RR > 20 breaths/min and the suspected source is urinary. Severe sepsis is suspected due to concern for tissue hypoperfusion/organ dysfunction based on lactic acid > 2 mmol/L. - Sepsis order set was initiated - Lactate trend: 2.4 -> 2.6 -> 3.3 -> 2.2 - Blood cultures drawn before antibiotics were given - Broad spectrum antibiotics started: Ceftriaxone - In regards to fluids: - 30 mL/kg of IV fluids was not administered given SBP > 90, MAP > 65, lactic acid < 4 # Questionable Fall vs Syncope # Rhabdomylososis - Worked well with PT - spoke with [facility]: plan is discharge to assisted living facility with Home Health - Consulted case management # Coronary Artery Disease # Hypertension - Continue home meds # Multiple Spiculated Pulmonary Nodules (JOSSIE 14 mm, JOSSIE 7 mm, RLL 12 mm, RL 7 mm) She and her family members are aware of these findings and aware that it may represent a malignancy. She is currently being evaluated by an outpatient physician. Luisito Fernandez M.D.
[2022-07-20] MEDS: CEFTRIAXONE 1,000 MG in NA CHLORIDE 0.9% 50 ML IVPB SCH (20:39)
[2022-07-21] MEDS: Ringers Lactate 1,000 ML IV SCH ×4 (02:17→20:35)
[2022-07-21 03:03] LABS: Hematocrit 39.1 % (36.0-45.0); MCV 92.2 fL (80-100); MPV 8.8 fL (7.6-11.3); RBC Red Blood Cell Count 4.24 M/uL (3.86-4.86)
[2022-07-21 03:29] LABS: Albumin 2.3 g/dL (3.4-5.0); Bilirubin Total 0.4 mg/dL (0.2-1.0); Magnesium 1.9 mg/dL (1.8-2.4); Potassium 4.1 mmol/L (3.5-5.1); Protein, Total 6.1 g/dL (6.4-8.2)
[2022-07-21 04:01] LABS: Blood Morphology Comment NOT SEEN (NOT SEEN); Platelet Estimate ADEQ
[2022-07-21] MEDS: ASPIRIN EC 81 MG TAB PO SCH (08:18)
[2022-07-21] MEDS: FOLIC ACID 1 MG TABLET PO SCH (08:18)
[2022-07-21] MEDS: ENOXAPARIN 40 MG/0.4 ML SQ SCH (08:18)
--- NOTE | 2022-07-21 10:48 | P.PN ---
Subjective Date of Service: 07/21/22 Chief Complaint: Sepsis, UTI, rhabdo Overnight, she appeared to have an episode of agitation/sun-downing per her sister, Ms. Benjamin, who was in the room. She was able to be re-oriented and calmed down without any intervention. This morning, she appears calm, sitting upright, and eating breakfast. Review of Systems is unable to be obtained Physical Examination - Vital Signs Temperature: 97.0 F Blood Pressure: 145/94 Pulse: 67 Respirations: 18 Pulse Ox (%): 100 - Studies Microbiology Data (last 24 hrs): 07/18/22 21:56 Catheterized Urine [place] Count - Final BETWEEN 10,000 & 100,000 CFU/ML 07/18/22 21:56 Catheterized Urine - Final MIXED BAKARI. Assessment And Plan - Plan - Physical Exam General: Alert, In no apparent distress, Oriented x2 HEENT: Atraumatic, PERRLA, Mucous membr. moist/pink, EOMI, Sclerae nonicteric Neck: Supple, JVD not distended Respiratory: Clear to auscultation bilaterally, Normal air movement Cardiovascular: No edema, Regular rate/rhythm, Normal S1 S2, No gallops, No rubs, No murmurs Gastrointestinal: Normal bowel sounds, Soft and benign, Non-distended, No tenderness, No rebound, No guarding Musculoskeletal: No clubbing Integumentary: No rashes Neurological: Normal speech, Cranial nerves 3-12 intact, Normal affect # Severe Sepsis likely secondary to a Urinary Tract Infection She met sepsis criteria based on HR > 90 bpm, RR > 20 breaths/min and the suspected source is urinary. Severe sepsis is suspected due to concern for tissue hypoperfusion/organ dysfunction based on lactic acid > 2 mmol/L. - Sepsis order set was initiated - Lactate trend: 2.4 -> 2.6 -> 3.3 -> 2.2 - Blood cultures drawn before antibiotics were given - Broad spectrum antibiotics started: Ceftriaxone - In regards to fluids: - 30 mL/kg of IV fluids was not administered given SBP > 90, MAP > 65, lactic acid < 4 # Questionable Fall vs Syncope # Rhabdomylososis - Worked well with PT - plan is discharge to assisted living facility with Home Health - Consulted case management and spoke with Inessa Guzmangorge - she is working with family regarding placement # Coronary Artery Disease # Hypertension - Continue home meds # Multiple Spiculated Pulmonary Nodules (JOSSIE 14 mm, JOSSIE 7 mm, RLL 12 mm, RL 7 mm) - Concern for Malignancy She and her family members are aware of these findings and aware that it may represent a malignancy. She is currently being evaluated by an outpatient physician. Luisito Fernandez M.D.
[2022-07-21] MEDS: CEFTRIAXONE 1,000 MG in NA CHLORIDE 0.9% 50 ML IVPB SCH (20:34)
[2022-07-22] MEDS: Ringers Lactate 1,000 ML IV SCH ×3 (05:48→22:06)
[2022-07-22 06:16] LABS: Potassium 3.6 mmol/L (3.5-5.1)
--- NOTE | 2022-07-22 06:41 | ECHO ---
HEIGHT: 5 ft 6 in WEIGHT: 121 lb 1.6 oz DATE OF STUDY: 07/19/[address]: Rajat Albrecht NP 2-DIMENSIONAL: YES M.MODE: YES DOPPLER: YES COLOR FLOW: YES TDS: PORTABLE: YES DEFINITY: BUBBLE STUDY: DIAGNOSIS: SYNCOPE CARDIAC HISTORY: CATHERIZATION: SURGERY: PROSTHETIC VALVE: PACEMAKER: MEASUREMENTS (cm) DIASTOLIC (NORMALS) SYSTOLIC (NORMALS) IVSd 1.2 (0.6-1.2) LA Diam (1.9-4.0) LVEF 65% LVIDd 3.3 (3.5-5.7) LVIDs 2.1 (2.0-3.5) %FS 34% LVPWd 1.1 (0.6-1.2) Ao Diam 2.7 (2.0-3.7) 2 DIMENSIONAL ASSESSMENT: RIGHT ATRIUM: NORMAL LEFT ATRIUM: NORMAL RIGHT VENTRICLE: NORMAL LEFT VENTRICLE: NORMAL TRICUSPID VALVE: NORMAL MITRAL VALVE: MITRAL ANNULAR CALCIFICATION PULMONIC VALVE: NORMAL AORTIC VALVE: SCLEROSIS PERICARDIAL EFFUSION: NONE AORTIC ROOT: NORMAL LEFT VENTRICULAR WALL MOTION: NORMAL DOPPLER/COLOR FLOW: NORMAL COMMENTS: AORTIC SCLEROSIS. NO STENOSIS. MITRAL ANNULAR CALCIFICATION. NORMAL LEFT VENTRICULAR SIZE AND EJECTION FRACTION. TECHNOLOGIST: LEODAN CHUA
[2022-07-22] MEDS: ASPIRIN EC 81 MG TAB PO SCH (08:29)
[2022-07-22] MEDS: FOLIC ACID 1 MG TABLET PO SCH (08:29)
[2022-07-22] MEDS: ENOXAPARIN 40 MG/0.4 ML SQ SCH (08:30)
[2022-07-22] MEDS ORDERED: POTASSIUM CL SA 10 MEQ TAB PO ONE (09:00)
[2022-07-22] MEDS ORDERED: CEFTRIAXONE 1000 MG/VIAL ONE (20:00)
[2022-07-22] MEDS ORDERED: NA CHLORIDE 0.9% 50 ML ONE (20:01)
[2022-07-22] MEDS: CEFTRIAXONE 1,000 MG in NA CHLORIDE 0.9% 50 ML IVPB SCH (20:32)
[2022-07-23] MEDS: HYDROCODONE/APAP 5/325 MG TAB PO PRN (03:01)
[2022-07-23] MEDS: Ringers Lactate 1,000 ML IV SCH (05:48)
[2022-07-23 05:50] LABS: Magnesium 1.7 mg/dL (1.8-2.4); Potassium 3.7 mmol/L (3.5-5.1)
[2022-07-23] MEDS ORDERED: MAGNESIUM SULFATE 1 gm IVPB 1 GM/100 ML BAG IV ONE (06:22)
[2022-07-23] MEDS ORDERED: lisinopriL 20 MG TAB PO ONE (08:41)
[2022-07-23] MEDS ORDERED: METOPROLOL TAR 25 MG TAB PO ONE (08:41)
[2022-07-23] MEDS ORDERED: predniSONE 20 MG TAB PO ONE (08:41)
--- NOTE | 2022-07-23 08:45 | P.PN ---
Subjective Date of Service: 07/22/22 Subjective: No new changes, No C/O voiced, Ambulating, Improving Review of Systems 10-point ROS is otherwise unremarkable Physical Examination - Vital Signs Temperature: 98.2 F Blood Pressure: 159/99 Pulse: 80 Respirations: 18 Pulse Ox (%): 95 - Physical Exam General: Alert, In no apparent distress HEENT: Atraumatic, PERRLA, EOMI Neck: Supple, JVD not distended Respiratory: Clear to auscultation bilaterally, Normal air movement Cardiovascular: Regular rate/rhythm, Normal S1 S2 Gastrointestinal: Normal bowel sounds, No tenderness Musculoskeletal: No tenderness Integumentary: No rashes Neurological: Normal speech, Normal tone, Normal affect Lymphatics: No axilla or inguinal lymphadenopathy - Studies Medications List Reviewed: Yes Assessment & Plan - Problems (Diagnosis) (1) Rhabdomyolysis Current Visit: Yes Status: Acute (2) UTI (urinary tract infection) Current Visit: Yes Status: Acute (3) Sepsis Current Visit: Yes Status: Acute (4) Anorexia Current Visit: Yes Status: Acute (5) Hypertension Current Visit: Yes Status: Acute (6) CAD (coronary artery disease) Current Visit: Yes Status: Acute (7) History of lung cancer Current Visit: Yes Status: Acute - Plan Plan: 1. IV fluids 2. IV antibiotics 3. Physical therapy 4. Appetite stimulant 5. Monitor hemodynamics 6. Anticipate discharge over the next 24 to 48 hours Discharge Plan: Home Plan to discharge in: 24 Hours - Advance Directives Does patient have a Living Will: No Does patient have a Durable POA for Healthcare: No - Code Status/Comfort Care Code Status Assessed: Yes Code Status: Full Code Physician Review: Patient Assessed, Agree with Above Assessment and Plan
[2022-07-23] MEDS ORDERED: POTASSIUM CL SA 10 MEQ TAB PO ONE (09:00)
[2022-07-23] MEDS: ASPIRIN EC 81 MG TAB PO SCH (09:38)
[2022-07-23] MEDS: ENOXAPARIN 40 MG/0.4 ML SQ SCH (09:38)
[2022-07-23] MEDS: FOLIC ACID 1 MG TABLET PO SCH (09:39)
[2022-07-23] MEDS ORDERED: METHYLPREDNISOLONE 125 MG INJ IV ONE (12:40)
[2022-07-23] MEDS: METOPROLOL TAR 25 MG TAB PO SCH (17:23)
[2022-07-23] MEDS: lisinopriL 20 MG TAB PO SCH ×2 (17:23→20:07)
[2022-07-23] MEDS ORDERED: ALPRAZOLAM 0.25 MG TABLET PO PRN (18:52)
[2022-07-23] MEDS ORDERED: CEFTRIAXONE 1000 MG/VIAL ONE (20:02)
[2022-07-23] MEDS: CEFTRIAXONE 1,000 MG in NA CHLORIDE 0.9% 50 ML IVPB SCH (20:05)
--- NOTE | 2022-07-24 01:06 | CON ---
Reason For Consultation: Consultation called because of altered mental status. History Of Present Illness: Ms. Montes De Oca is a 77-year-old right-handed patient with hypertension, coronary artery disease and lung cancer, on chemo and radiation who has memory loss and is referred for neurologic evaluation. The patient's niece was in the room. Her niece and the mica ent report memory loss, slowly progressive over the last 6 years, but appeared to worsen at times. S he has difficulty recalling words, thoughts, conversations and personal items. However, she still li ves alone. She stopped driving several years ago. The reason for stopping driving is not clear. Sh yoli has lung cancer and is admitted with severe sepsis, urinary tract infection and rhabdomyolysis. Th e patient's niece notes at this point, that she seemed to be at baseline level of cognitive interacti on, but in the evenings, she has significant sundowning and worsening memory problems. Again as well when with infection, her memory also worsened significantly. The patient denies a history of stroke , head trauma with loss of consciousness or seizures. She denies a family history of memory loss. Past Medical History: As noted above. Past Surgical History: Knee surgery and cardiac stents. Family History: No memory loss. Social History: She smokes cigarettes regularly, lives alone and drinks caffeinated beverages. Hussein es alcohol use. Allergies: NO KNOWN DRUG ALLERGIES. Current Medications: Xanax 0.5 mg at night as needed, aspirin 81 mg daily, Rocephin 1 g every 24 georgette rs, Lovenox 40 mg subcutaneously daily, folic acid 1 mg daily, Prinivil 20 mg twice daily, and Zofran as needed. Review of Systems: As noted. She has problems with memory, has had chest pain in the past. No recent chest pain. No r ecent cough, cough, fever, or chills. Positive nausea, but no vomiting. Physical Examination: Vital Signs: Blood pressure 131/92, pulse 75, respiratory rate 16, temperature 97.0, oxygen saturati on 94%. Weight 121 pounds, height 5 feet 6 inches, BMI 19.5. General: Ms. Montes De Oca is sitting in a chair eating lunch. She is in no significant distress. HEENT: She is normocephalic, atraumatic. Sclerae anicteric. Oropharynx is pink and moist. Neck: Supple. Chest: Clear. Heart: Regular. Extremities: No edema, clubbing, or cyanosis. Neurological: She is alert and oriented to person, situation, and place. She is able to follow comm ands appropriately. She is able to name objects appropriately. She does have difficulty recalling 3 objects after 3 minutes. Cranial nerve examination revealed no focal deficits. She has no focal mo tor, coordination, sensory, or reflex deficits. Laboratory Studies: White blood cell count 3.3, hemoglobin and hematocrit normal. Coagulation panel is unremarkable. Chemistries did show earlier elevated creatine kinase from rhabdomyolysis around 1 824 on and then 1284 on the . Her electrolytes are slightly abnormal. Sodium 130, magnesiu m 1.7. Initial urinalysis shows urinary tract infection. Cultures did show between 10,000 and 100,0 00 colony-forming units. She has had negative blood cultures x2. Her brain MRI reveals moderate chr onic small vessel ischemic disease without acute ischemic or hemorrhagic findings. An echocardiogram shows ejection fraction of 65% with aortic sclerosis without stenosis and mitral annual calcificatio n. She has an EEG with results pending. Assessment: Ms. 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 However, late onset Alzheimer disease cannot be ruled out. She does have an in tercurrent infection, which will likely make cognitive functioning significantly worse. She should r ecover towards a baseline once she is treated and a period of equilibration has passed including her ability to regain cognitive function following a remote infection such as her sepsis. Plan: 1.Continue with antibiotics as per Primary Team. 2.Consider Aricept 5 mg daily. 3.She may benefit from speech therapy for improving cognitive functioning. 4.Consider workup for dementia including apolipoprotein E genetic screening. 5.Aspirin 81 mg daily and folic acid. 6.Aggressive management of hypertension. 7.Patient will be followed once EEG is reviewed. EPIFANIO/CAR[place] Voice ID: [id number] Report ID: [id number]
[2022-07-24 05:29] LABS: Absolute Lymphocytes (CBC) 0.8 K/uL (0.7-4.9); Hematocrit 36.3 % (36.0-45.0); Lymphocytes % 13.8 % (15.3-44.8); MCV 89.8 fL (80-100); MPV 8.2 fL (7.6-11.3); RBC Red Blood Cell Count 4.04 M/uL (3.86-4.86)
[2022-07-24] MEDS: METOPROLOL TAR 25 MG TAB PO SCH (05:43)
[2022-07-24 06:30] LABS: Potassium 4.5 mmol/L (3.5-5.1)
[2022-07-24 06:31] LABS: Magnesium 2.1 mg/dL (1.8-2.4)
[2022-07-24] MEDS: ASPIRIN EC 81 MG TAB PO SCH (08:03)
[2022-07-24] MEDS: ENOXAPARIN 40 MG/0.4 ML SQ SCH (08:03)
[2022-07-24] MEDS: lisinopriL 20 MG TAB PO SCH (08:03)
[2022-07-24] MEDS: FOLIC ACID 1 MG TABLET PO SCH (08:03)
[2022-07-24 12:04] VITALS: BP 149/89; TEMP 97.1
[2022-07-24 12:08] VITALS: O2SAT 98
== END 2022-07-24 13:30 | disposition home health service (06) | DRG 872 ==
LOC: ER 18:55 → ERHOLD 07-19 → 2ND 07-19 00:51
PROVIDERS: ADMIT Internal Medicine; ATTEND Hospitalist
DX: A41.9 Sepsis, unspecified organism (principal); N39.0 Urinary tract infection, site not specified; E87.2 Acidosis; M62.82 Rhabdomyolysis; F05 Delirium due to known physiological condition; Z68.1 Body mass index [BMI] 19.9 or less, adult; E86.0 Dehydration; I10 Essential (primary) hypertension; I25.10 Atherosclerotic heart disease of native coronary artery without angina pectoris; F01.50 Vascular dementia, unspecified severity, without behavioral disturbance, psychotic disturbance, mood disturbance, and anxiety; F17.200 Nicotine dependence, unspecified, uncomplicated; R63.0 Anorexia; R65.20 Severe sepsis without septic shock; Z60.2 Problems related to living alone; Z79.82 Long term (current) use of aspirin; Z85.118 Personal history of other malignant neoplasm of bronchus and lung; Z20.822 Contact with and (suspected) exposure to COVID-19
CPT/HCPCS: 36415; 70450; 70551; 71260; 72125; 74177; 80048; 80053; 80061; 80076; 81003; 81015; 82550; 82607; 82746; 83540; 83605; 83735; 84439; 84443; 85025; 85610; 85730; 87040; 87086; 87088; 87811; 93005; 93306; 95819; 96374; 97110; 97116; 97161; 97530; 99285; J1650; J2930; J3475; J7030; J7120; J7512; Q9967